=== PATIENT | female | born 1950 | race American Indian/Alaskan Native ===

== ENCOUNTER 2017-01-20 09:28 | Day surgery (SDC) | payer MEDICARE ==
[2017-01-20] MEDS ORDERED: PEPCID ONE (12:22)
[2017-01-20] MEDS ORDERED: LACTATED RINGERS 1,000 ML ONE (12:22)
[2017-01-20] MEDS ORDERED: VERSED ONE (12:22)
[2017-01-20] MEDS ORDERED: PEPCID IV ONE (12:24)
[2017-01-20] MEDS ORDERED: MARCAINE 0.25% INFILTRATI ONE ×2 (12:56)
[2017-01-20] MEDS ORDERED: NACL 0.9% 250ML IV ONE (12:56)
[2017-01-20] MEDS ORDERED: HEPARIN IV ONE (12:56)
[2017-01-20] MEDS ORDERED: ZOFRAN ONE (13:30)
[2017-01-20] MEDS ORDERED: LACTATED RINGERS 1,000 ML IV SCH (14:00)
[2017-01-20 14:01] VITALS: BP 130/69
[2017-01-20] MEDS ORDERED: ZOFRAN IV ONE (14:43)
--- NOTE | 2017-01-20 17:30 | Post Anesthesia Evaluation ---
- Post Anesthesia Evaluation Patient Participated: Yes Airway Patent: Yes Stable Respiratory Function: Yes Nausea/Vomiting: No Temp > 96.8F: Yes Pain Manageable: Yes Adequeate Hydration: Yes Anesthesia Complications: No
--- NOTE | 2017-01-20 17:31 | Anesthesia Consultation ---
Anesthesia Consult and Med Hx Date of service: 01/20/17 - Airway Anesthetic Teeth Evaluation: Good, Poor ROM Head & Neck: Adequate Mental/Hyoid Distance: Adequate Mallampati Class: Class II Intubation Access Assessment: Good - Pulmonary Exam CTA: Yes - Cardiac Exam Cardiac Exam: RRR - Pre-Operative Health Status ASA Pre-Surgery Classification: ASA2 Proposed Anesthetic Plan: General - Pulmonary Hx Smoking: No Hx Sleep Apnea: No (SIVA PRE SCREEN LOW RISK) - Cardiovascular System Hx Hypertension: Yes (X1 YR) - Endocrine Hx Hypothyroidism: Yes (HAD THYROID RADIATION , ON MEDS ( NO CANCER)) - Hematic Hx Anemia: Yes
--- NOTE | 2017-01-20 19:26 | Operative Report ---
PREOPERATIVE DIAGNOSIS: Cancer of the breast, right side. POSTOPERATIVE DIAGNOSIS: Cancer of the breast, right side. PROCEDURE: Insertion of subcutaneous port via left subclavian approach with the use of C-arm. ANESTHESIA: General. BLOOD LOSS: Minimal. DESCRIPTION OF PROCEDURE: With the patient in the Trendelenburg position, after cleansed and draped in the usual fashion. I was able to have a needle inserted into left subclavian vein on the left side. Where I had the good backflow of venous blood, following which the guidewire was inserted with use of the needle with the C-arm. Then, the needle was removed and then a pocket was created at the insertion level with a length of about 2 cm and a depth of subcutaneous tissue for about 3.5 cm. We were all satisfied, we had good hemostasis. Then, the port was tacked to the fascia with the use of 3-0 Vicryl interruptedly and we were able to cut the tubing to go all the way to the superior vena cava. Then, the dilator was advanced in the usual fashion. With the use of the guidewire, it went easily any problem, removing the dilator leaving the sheath through which I was able to introduce the catheter all the way to the superior vena cava area. We had good hemostasis and had excellent backflow of venous blood via the port percutaneously. At that point, the wound was closed in layers with 3-0 Vicryl for the deep and superficial subcutaneous tissue and the skin with 4-0 Vicryl for the intracuticular layer and a bandage. The patient was then transferred to the recovery room in good condition. cc: JOB# [id number] LLOYD/ALLISON
--- NOTE | 2017-01-21 07:21 | Fluoroscopy Report ---
Findings: History of breast cancer is given. A single fluoroscopic spot shot of the precordial region demonstrates a left [id number] which terminates at the cavoatrial junction. There is no gross pneumothorax on this limited exam. Impression: Left [id number] placement as described.
== END 2017-01-20 16:00 | disposition home or self-care (01) ==
LOC: OR 09:28
PROVIDERS: ATTEND Surgery
DX: C50.911 Malignant neoplasm of unspecified site of right female breast (principal); I10 Essential (primary) hypertension; E03.9 Hypothyroidism, unspecified; D64.9 Anemia, unspecified; E11.9 Type 2 diabetes mellitus without complications; Z91.013 Allergy to seafood
CPT/HCPCS: 36561; 77001; 82962; C1788; J1644; J2405; J7050; J7120; J2250